=== PATIENT | female | born 1960 ===

== ENCOUNTER 2018-04-29 13:32 | Emergency (ER) | payer OTHER ==
[~2018-04-29] VITALS: Ht 160 cm; Wt 81.6 kg
[2018-04-29] MEDS ORDERED: ATACAND HCT 321 EAC1 (14:13)
[2018-04-29] MEDS ORDERED: SYNTHROID75 MCG (14:13)
[2018-04-29] MEDS ORDERED: FORTAMET1000 MG (14:13)
== END 2018-04-30 11:18 | disposition home or self-care (01) ==
LOC: ER 13:32
DX: K29.70 Gastritis, unspecified, without bleeding (principal)